=== PATIENT | female | born 1980 | race Caucasian/White ===

== ENCOUNTER 2024-06-05 15:49 | Outpatient (CLI) | payer BC, SELFPAY ==
[2024-06-05 17:45] LABS: MANUAL DIFFERENTIAL MANUAL DIFFERENTIAL (MANUAL DIFF)
[2024-06-05 17:54] LABS: Basophils # 0.1 K/mm3 (0-0.2); Basophils % 0.5 % (0.1-2.0); Eosinophils # 0.1 K/mm3 (0.0-0.4); Eosinophils % 1.5 % (0.1-12.0); Hematocrit 40.3 % (37.0-47.0); Hemoglobin 14.6 g/dL (12.2-16.2); Lymphocytes # 3.2 K/mm3 (0.7-4.5); Lymphocytes % 34.1 % (10-50); Mean Corpuscular HGB Conc 36.2 g/dL (31.8-35.4); Mean Corpuscular Hemoglobin 31.5 pg (27.0-31.2); Mean Corpuscular Volume 86.9 fl (81-99); Mean Platelet Volume 7.5 fl (7.4-10.4); Monocytes # 0.5 K/mm3 (0.1-1.0); Monocytes % 5.5 % (1.7-9.3); Neutrophils # 5.5 K/mm3 (1.8-7.8); Neutrophils % 58.5 % (37.0-80.0); Platelet Count 355 K/mm3 (142-424); Red Blood Count 4.63 M/mm3 (4.20-5.40); Red Cell Distribution Width 15.1 % (11.5-17.5); White Blood Count 9.4 K/mm3 (4.8-10.8)
[2024-06-05 18:31] LABS: Eosinophils % 1 % (0-3); Lymphocytes % 28 % (10-50); Monocytes % 2 % (2-9); Neutrophils % 69 % (42-76); Total Cells Counted 100
[2024-06-05 18:32] LABS: Alanine Aminotransferase 61 U/L (12-78); Albumin Level 4.6 g/dl (3.5-5.0); Albumin/Globulin Ratio 1.5 (1.1-1.8); Alkaline Phosphatase 31 U/L (38-126); Amylase 69 U/L (30-110); Anion Gap 7.6 mEq/L (5-15); Aspartate Amino Transferase 43 U/L (14-36); Bilirubin,Total 0.6 mg/dl (0.2-1.3); Blood Urea Nitrogen 13 mg/dl (7-17); Calcium 9.8 mg/dl (8.4-10.2); Carbon Dioxide 27 mmol/L (22.0-30.0); Chloride 107 mmol/L (98-107); Estimated Glomerular Filt Rate 109 ml/min (>60); GFR (African American) 131 ML/MIN (>60); Globulin 3.1 g/dL (1.3-3.2); Glucose 88 mg/dl (74-100); Lipase 111 U/L (23-300); Platelet Estimate Slight Increase; Potassium 4.6 mmoL/L (3.5-5.1); RBC Morphology Normal; Sodium 137 mmol/L (136-145); Total Protein,Serum 7.7 g/dl (6.3-8.2)
[2024-06-05 18:43] LABS: Hemoglobin A1C 5.2 % (4.0-6.0)
[2024-06-05 18:49] LABS: 25-OH Vitamin D, Total 21.8 ng/mL (30-100)
[2024-06-05 20:08] LABS: Thyroid Stimulating Hormone 2.06 uIU/mL (0.465-4.68)
== END 2024-06-05 23:59 | disposition home or self-care (01) ==
LOC: LAB.DROPOF 06-06 10:29
PROVIDERS: PCP Student in an Organized Health Care Education/Training Program; Visit Provider Student in an Organized Health Care Education/Training Program
DX: R19.7 Diarrhea, unspecified (principal); R10.9 Unspecified abdominal pain; Z80.0 Family history of malignant neoplasm of digestive organs; Z86.0100 Personal history of colon polyps, unspecified; K58.0 Irritable bowel syndrome with diarrhea; F31.9 Bipolar disorder, unspecified; F90.8 Attention-deficit hyperactivity disorder, other type; Z71.6 Tobacco abuse counseling
CPT/HCPCS: 80053; 82150; 82306; 83036; 83690; 84443; 85007; 85014; 85018; 85048; 85049

== ENCOUNTER 2024-06-11 08:51 | Outpatient (CLI) | payer BC, SELFPAY ==
--- NOTE | 2024-06-11 08:51 | US_ITS ---
FINAL REPORT CLINICAL HISTORY: abd pain FINDINGS: Sonographic images of the abdomen were obtained. There is fatty infiltration of the liver. The gallbladder has an unremarkable appearance without evidence of gallstones. There is no evidence of biliary ductal dilatation. The common hepatic duct measures 6 mm. Limited images of the pancreas are unremarkable. The spleen size is normal. The right kidney measures 12.7 cm in length. The left kidney measures 11.6 cm in length. There is normal renal echogenicity. There is no evidence of hydronephrosis. The aorta has an unremarkable appearance. Limited images of the inferior vena cava are unremarkable. IMPRESSION: Fatty liver. Reviewed, Interpreted and Dictated by Chino Roberto MD Transcribed by Erika Adam Authenticated and . [facility]
== END 2024-06-11 23:59 | disposition home or self-care (01) ==
LOC: RAD 08:51
PROVIDERS: PCP Student in an Organized Health Care Education/Training Program; Visit Provider Student in an Organized Health Care Education/Training Program
DX: K76.0 Fatty (change of) liver, not elsewhere classified (principal); R10.9 Unspecified abdominal pain
CPT/HCPCS: 76700

== ENCOUNTER 2024-07-06 15:42 | Outpatient (CLI) | payer BC, SELFPAY ==
[2024-07-06 15:52] LABS: Adenovirus F 40/41, stool Not Detected (NotDetected); Astrovirus Not Detected (NotDetected); Campylobacter Not Detected (NotDetected); Clostridium Difficile A/B, PCR Not Detected (NotDetected); Cryptosporidium Not Detected (NotDetected); Cyclospora Cayetanesis Not Detected (NotDetected); Entamoeba histolytica Not Detected (NotDetected); Enteroaggregative E coli Not Detected (NotDetected); Enteropathogenic E coli Not Detected (NotDetected); Enterotoxigenic E coli Not Detected (NotDetected); Giardia lamblia Not Detected (NotDetected); Norovirus Not Detected (NotDetected); Plesimonas Shigalloides, PCR Not Detected (NotDetected); Rotavirus A Not Detected (NotDetected); Salmonella, PCR Not Detected (NotDetected); Sapovirus Not Detected (NotDetected); Shiga-like toxin E coli Not Detected (NotDetected); Shigella Enterovasive E coli Not Detected (NotDetected); Vibrio Cholerae Not Detected (NotDetected); Vibrio, PCR Not Detected (NotDetected); Yersinia Entercolitica, PCR Not Detected (NotDetected)
[2024-07-09 07:18] LABS: Calprotectin, Fecal 10 ug/g (0-120)
[2024-07-09 22:19] LABS: Pancreatic Elastase, Fecal 481 (>200)
== END 2024-07-06 23:59 | disposition home or self-care (01) ==
LOC: LAB 15:42
PROVIDERS: PCP Student in an Organized Health Care Education/Training Program; Visit Provider Nurse Practitioner Family
DX: R19.4 Change in bowel habit (principal); R19.7 Diarrhea, unspecified; R15.2 Fecal urgency; K62.5 Hemorrhage of anus and rectum; K58.2 Mixed irritable bowel syndrome; R14.0 Abdominal distension (gaseous)
CPT/HCPCS: 82656; 83993; 87506

== ENCOUNTER 2024-08-05 18:49 | Emergency (ER) | payer BC, SELFPAY ==
[2024-08-05 19:10] VITALS: BP 122/68; PULSE 87; RESP 19; TEMP 36.8; O2SAT 98; BMI 27.2
[2024-08-05 19:15] LABS: Coronavirus 19, PCR Not Detected (NotDetected); Influenza A, PCR Not Detected (NotDetected); Influenza B, PCR Not Detected (NotDetected)
--- NOTE | 2024-08-05 19:31 | EXP.UTC ---
Discharge Plan Disposition Patient Disposition: Home, Self-Care Condition: Good Prescriptions Prescriptions: No Action dextroamphetamine-amphetamine 20 mg tablet 20 mg PO BID Patient Comments: TAKE ONE TABLET BY MOUTH TWICE DAILY TAKE AT LEAST 4-6 HOURS APART aripiprazole 5 mg tablet 5 mg PO DAILY Patient Comments: TAKE ONE TABLET BY MOUTH EVERY DAY bupropion HCl 300 mg tablet extended release 24 hr 300 mg PO DAILY Patient Comments: TAKE ONE TABLET BY MOUTH EVERY DAY cholecalciferol (vitamin D3) 50 mcg (2,000 unit) capsule 50 mcg PO DAILY Patient Comments: TAKE ONE CAPSULE BY MOUTH EVERY DAY Referrals Follow up/Referrals: Floresita Garcia PA [Primary Care Provider] - See instructions Activity Restrictions/Add. Instructions Additional Instructions/Restrictions: *Monitor Temp, Over the counter Motrin or Tylenol as directed/as needed Tylenol every 4 hours and Motrin every 6 hours (as long as your family doctor has told you that you can take it) for fever or pain. and straight to ER if unable to lower temp less than 101.0 after medication given *Warm salt water gargles may help to soothe the throat *Throat Lozenges? *Warm fluids like tea with honey may help to soothe the throat? *Sleep elevated *Humidifier/Vaporizer Follow up IMMEDIATELY for new or worsening symptoms or no Noticeable improvement over the next 48-72 hours. 911 for difficulty breathing or swallowing You was tested for COVID and Flu these results should be back later tonight and be available on the [facility] Portal Clinical Impressions Clinical Impression: Viral syndrome Instructions Patient Instructions: DI for Viral Syndrome Print Language Print Language: Faroese Discharge ED Provider: Isabel Oates [facility] [place] General Stated complaint: fever Mode of Arrival: Ambulatory Source of Information: Patient Limitations: No Limitations Time Seen by Provider: 08/05/24 19:31 Description of Symptoms (Recalled from Triage Doc. by RN): PATIENT C/O BODY ACHES, CHILLS, AND FEVER THAT STARTED THIS EVENING HEENT Symptoms (Recalled from RN notes): No Resp Symptoms (Recalled from RN notes): No Skin Symptoms (Recalled from RN notes): No MS Symptoms (Recalled from RN notes): No Functional Status (Recalled from RN notes): WNL History of Present Illness Provider Complaint: Patient states that she came in to work this evening and then started with fever, chills, body aches and not feeling well States wanting to get tested for COVID and flu Related Data Home Medications ?Medication ?Instructions ?Recorded ?Confirmed aripiprazole 5 mg tablet 5 mg PO DAILY 08/05/24 08/05/24 bupropion HCl 300 mg 24 hr tablet, 300 mg PO DAILY 08/05/24 08/05/24 extended release cholecalciferol (vitamin D3) 50 50 mcg PO DAILY 08/05/24 08/05/24 mcg (2,000 unit) capsule dextroamphetamine-amphetamine 20 20 mg PO BID 08/05/24 08/05/24 mg tablet Allergies Allergy/AdvReac Type Severity Reaction Status Date / Time No Known Allergies Allergy Unverified 07/06/24 13:40 Worker's Comp Is this a Worker's Comp case?: No [facility] Disclaimer: The information contained in this section may have been updated after the patient was seen, as this information can be updated by other users. Medical History ADHD Bipolar 1 disorder Surgical History H/O colonoscopy with polypectomy S/P appendectomy Family History Sister Cancer, Onset Age: 45 colon cancer Social History Smoking Status: Current every day smoker tobacco type: e-cigarettes alcohol intake: current alcohol intake frequency: holidays/special occasions only current occupational status: employed Travel in the last 8 weeks: [place] the [place] household members: children housing: apartment lives independently: Yes marital status: number of children: 3 ROS Obtained: Yes All systems reviewed & no additional complaints except as documented and Yes Systems reviewed as appropriate & no additional complaints except as documented Constitutional Constitutional: Reports system reviewed and no additional complaints, except as documented, Reports as per HPI, Reports body ache, Reports chills, Reports fever(s) and Reports headache(s) Eyes Eyes: Reports system reviewed and no additional complaints, except as documented and Reports as per HPI ENT Ears, Nose, Mouth, and Throat: Reports system reviewed and no additional complaints, except as documented, Reports as per HPI, Reports headache(s), Reports nasal congestion and Reports nasal discharge Cardiovascular Cardiovascular: Reports system reviewed and no additional complaints, except as documented and Reports as per HPI Respiratory Respiratory: Reports system reviewed and no additional complaints, except as documented and Reports as per HPI Gastrointestinal Gastrointestingal: Reports system reviewed and no additional complaints, except as documented and as per HPI Neurologic Neurologic: Reports headache(s) Physical Exam General General appearance: alert and in no apparent distress ENT ENT exam: Present normal exam, normal oropharynx, mucous membranes moist and TM's normal bilaterally Respiratory Respiratory exam: Present normal lung sounds bilaterally; Absent respiratory distress or wheezes Cardiovascular Cardiovascular exam: Present regular rate, normal rhythm and normal heart sounds Abdominal Exam Abdominal exam: Present soft and normal bowel sounds; Absent distention or tenderness Neurological Exam Neurological exam: Present alert, oriented X3 and normal gait Medical Decision Making Medical Records Screening: Per USPSTF and CDC recommendations, given the prevalence of disease in our region, it is our hospital?s policy to screen for HIV and viral Hepatitis for all patients aged 18 and over and those with ongoing risk factors. Mukund Inquiry Pt receiving controlled substance: No Mukund was queried for this patient: No Vital Signs: 08/05/24 19:10 Temperature 98.3 F Temperature Source Oral Pulse Rate [Left Brachial] 87 Respiratory Rate 19 Blood Pressure [Left Arm] 122/68 Blood Pressure Mean [Left Arm] 86 Blood Pressure Source [Left Arm] Automatic Cuff Blood Pressure Position [Left Arm] Sitting 02 Sat by Pulse Oximetry 98 Oxygen Delivery Method Room Air Orders (Tests/Meds): ORDERS Category Date Time Status Rapid PCR Covid and Flu A/B Stat Lab 08/05/24 19:04 Received
[2024-08-05 19:40] VITALS: BP 122/68; PULSE 87; RESP 19; TEMP 36.8; O2SAT 98
== END 2024-08-05 19:42 | disposition home or self-care (01) ==
PROVIDERS: Emergency Provider Nurse Practitioner; PCP Student in an Organized Health Care Education/Training Program
DX: B34.9 Viral infection, unspecified (principal); R50.9 Fever, unspecified; M79.10 Myalgia, unspecified site
CPT/HCPCS: 87636; 99212; G0381

== ENCOUNTER 2024-09-04 13:04 | Emergency (ER) | payer BC, SELFPAY ==
--- NOTE | 2024-09-04 13:11 | XR_ITS ---
FINAL REPORT CLINICAL HISTORY: Pain COMPARISON: None FINDINGS: LEFT KNEE Three views demonstrate no acute fracture or dislocation. The joint spaces appear normal. No acute soft tissue abnormality is seen. IMPRESSION: No acute bony abnormality. Reviewed, Interpreted and Dictated by Chino Roberto MD Transcribed by Karen Bello Authenticated and [facility]
[2024-09-04 13:25] VITALS: BP 110/69; PULSE 69; RESP 20; TEMP 36.6; O2SAT 99; BMI 26.8
--- NOTE | 2024-09-04 13:26 | ED_ITS ---
Discharge Plan Disposition Patient Disposition: Home, Self-Care Condition: Good Prescriptions Prescriptions: New ibuprofen [IBU] 800 mg tablet 800 mg PO Q8HP PRN (Reason: Moderate Pain) Qty: 30 0RF No Action lamotrigine [Lamictal] 25 mg tablet 25 mg PO DAILY Qty: 98 0RF Rx Instructions: Take three tablets daily for two weeks, then four tablets daily for 2 weeks. If you develop a rash, stop the medication and call the clinic. prednisone 20 mg tablet 20 mg PO BID Qty: 10 0RF azithromycin [Zithromax Z-Dae] 250 mg tablet See Rx Instructions PO .COMPLEX Qty: 6 0RF Rx Instructions: For 250 mg dose pack: take 500 mg today (day 1), then 250 mg for 4 days (days 2-5) PO benzonatate 100 mg capsule 100 mg PO BID PRN (Reason: cough) Qty: 20 0RF varenicline tartrate 0.5 mg (11)- 1 mg (42) tablets,dose pack See Rx Instructions PO PER PKG DIR Qty: 53 0RF Rx Instructions: PO PER PKG DIR aripiprazole 5 mg tablet 5 mg PO DAILY Qty: 30 2RF bupropion HCl 300 mg tablet extended release 24 hr 300 mg PO DAILY Qty: 30 2RF dextroamphetamine-amphetamine 20 mg tablet 20 mg PO BID Qty: 60 0RF cholecalciferol (vitamin D3) 50 mcg (2,000 unit) capsule 50 mcg PO DAILY Patient Comments: TAKE ONE CAPSULE BY MOUTH EVERY DAY Referrals Follow up/Referrals: Floresita Garcia PA [Primary Care Provider] - See instructions Judson Bolanos DO [Staff Physician] - See instructions Activity Restrictions/Add. Instructions Additional Instructions/Restrictions: Rest the extremity, apply ice for 15 minutes as tolerated three or four times per day, Elevate the extremity as tolerated while you are resting. Use the crutches and knee immobilizer to rest your knee and your leg for the next few days. If your symptoms continue, make sure you follow up for further evaluation. Take ibuprofen for pain. I sent in a prescription to your pharmacy. Follow up with Dr. Bolanos (orthopedics). I put in a referral but you need to call his office and schedule an appointment. Follow up with your regular doctor. GO TO THE ER FOR ANY WORSENING SYMPTOMS Clinical Impressions Clinical Impression: Left knee sprain, Left knee pain, Fall Instructions Patient Instructions: How to Use Crutches, DI for Knee Sprain, How to Use a Knee Immobilizer Print Language Print Language: Luxembourgish Discharge ED Provider: Brandt Mckinnon [facility] [place] HPI General Stated complaint: ao 09/04/24 fall left knee Time Seen by Provider: 09/04/24 13:26 History of Present Illness Provider Complaint: She states that earlier today she fell and came down on her left knee. She has had left knee pain and swelling since then. She denies any other injury or complaints at this time. Related Data Home Medications ?Medication ?Instructions ?Recorded ?Confirmed cholecalciferol (vitamin D3) 50 50 mcg PO DAILY 08/05/24 08/10/24 mcg (2,000 unit) capsule Previous Rx's ?Medication ?Instructions ?Recorded azithromycin 250 mg tablet See Rx Instructions PO .COMPLEX #6 08/10/24 (Zithromax Z-Dae) tabs benzonatate 100 mg capsule 100 mg PO BID PRN cough #20 caps 08/10/24 lamotrigine 25 mg tablet (Lamictal) 25 mg PO DAILY #98 tabs 08/10/24 prednisone 20 mg tablet 20 mg PO BID #10 tabs 08/10/24 varenicline tartrate 0.5 mg (11)-1 See Rx Instructions PO PER PKG DIR 08/10/24 mg (42) tablets in a dose pack #53 tabs aripiprazole 5 mg tablet 5 mg PO DAILY #30 tabs 08/20/24 bupropion HCl 300 mg 24 hr tablet, 300 mg PO DAILY #30 tabs 08/20/24 extended release dextroamphetamine-amphetamine 20 20 mg PO BID #60 tabs 08/20/24 mg tablet ibuprofen 800 mg tablet (IBU) 800 mg PO Q8HP PRN Moderate Pain 09/04/24 #30 tabs Allergies Allergy/AdvReac Type Severity Reaction Status Date / Time No Known Allergies Allergy Verified 08/10/24 09:53 [facility] Disclaimer: The information contained in this section may have been updated after the patient was seen, as this information can be updated by other users. Medical History ADHD Bipolar 1 disorder Surgical History H/O colonoscopy with polypectomy S/P appendectomy Family History Sister Cancer, Onset Age: 45 colon cancer Social History Smoking Status: Current every day smoker tobacco type: e-cigarettes alcohol intake: current alcohol intake frequency: holidays/special occasions only current occupational status: employed Travel in the last 8 weeks: [place] the [place] household members: children housing: apartment lives independently: Yes marital status: number of children: 3 Have you lived/traveled outside US in past 30 days?: No Contact w/someone who lives/traveled outside US past 30 days?: No Exposure to someone with infectious disease in past 14 days?: No Do you have a fever (greater than 100.4 F or 38 C)?: No Have you tested positive for COVID-19: No Exposed to someone with COVID-19 in past 14 days?: No Do you have a sore throat?: No Do you have a cough?: No Do you have any weakness?: No Do you have any diarrhea?: No Are you experiencing any unusual bleeding?: No Do you have any muscle aches/pain?: No Do you have any abdominal pain?: No Are you experiencing loss of taste or smell?: No ROS Obtained: Yes All systems reviewed & no additional complaints except as documented Constitutional Constitutional: Denies chills and Denies fever(s) Eyes Eyes: Denies eye discharge ENT Ears, Nose, Mouth, and Throat: Denies dizziness, Denies otalgia, Denies neck pain and Denies sore throat Cardiovascular Cardiovascular: Denies chest pain Respiratory Respiratory: Denies shortness of breath, Denies chest congestion, Denies cough, Denies stridor and Denies wheezing Gastrointestinal Gastrointestingal: Denies nausea or vomiting Musculoskeletal Musculoskeletal: Denies back pain and Denies neck pain Integumentary/Breasts Skin/Breast: Denies redness, Denies rash and Denies wounds Neurologic Neurologic: Denies dizziness, Denies paresthesias and Denies radicular pain Allergic/Immunologic Allergic/Immunologic: Denies wheezing Physical Exam General General appearance: alert and in no apparent distress Head Head exam: atraumatic, normocephalic and normal inspection Eye Eye exam: Present normal appearance, PERRL and EOMI ENT ENT exam: Present normal exam, normal oropharynx, mucous membranes moist, TM's normal bilaterally and normal external ear exam Neck Neck exam: Present normal inspection, full ROM and trachea midline; Absent meningismus or lymphadenopathy Chest Chest inspection: Present normal inspection and symmetric chest wall rise; Absent tenderness Respiratory Respiratory exam: Present normal lung sounds bilaterally; Absent respiratory distress Cardiovascular Cardiovascular exam: Present regular rate and normal rhythm; Absent JVD Abdominal Exam Abdominal exam: Present soft and normal bowel sounds; Absent distention, tenderness or guarding Extremities Exam Extremities exam: Present normal capillary refill; Absent calf tenderness Expanded Lower Extremity Exam Left: Hip/Pelvis exam: Present normal inspection and full ROM; Absent tenderness Upper leg exam: Present normal inspection and full ROM; Absent tenderness Knee exam: Present tenderness, swelling and knee extension intact; Absent full ROM, abrasion, laceration, ecchymosis, deformity, crepitus, dislocation, erythema, effusion, anterior drawer sign, posterior draw sign, pain with valgus, laxity with valgus, pain with varus or laxity with varus Lower leg exam: Present normal inspection, full ROM and Achilles tendon intact; Absent tenderness or Homans' sign Ankle exam: Present normal inspection and full ROM; Absent tenderness, tenderness over talofibular lig or anterior draw sign Foot/toe exam: Present normal inspection and full ROM; Absent tenderness Neurovascular/Tendon exam: Present normal capillary refill, normal 2-point discrimination and normal fine/light touch; Absent pulse deficit, motor deficit, sensory deficit, tendon deficit, extremity cold to touch or pallor Gait: observed and limited by pain Back Exam Back exam: Present normal inspection; Absent tenderness Neurological Exam Neurological exam: Present alert and oriented X3 Psychiatric Psychiatric exam: Present normal affect and normal mood Skin Skin exam: Present warm, dry, intact and normal color Lymphatic Lymphatic Findings: no adenopathy Medical Decision Making Medical Records Medical records reviewed: No I reviewed the patient's medical records. Screening: Per USPSTF and CDC recommendations, given the prevalence of disease in our region, it is our hospital?s policy to screen for HIV and viral Hepatitis for all patients aged 18 and over and those with ongoing risk factors. Mukund Inquiry Pt receiving controlled substance: No Orders (Tests/Meds): ORDERS Category Date Time Status Knee XR left 3 views [XR knee LT 3V] Stat Exams 09/04/24 13:11 Taken Radiology Data #1: Image(s): Knee Image Reviewed: Yes I reviewed the patient's radiology image and Yes I have reviewed radiologist's interpretation Preliminary Findings: No Fracture Seen Accession No. 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 The joint spaces appear normal. No acute soft tissue abnormality is seen. IMPRESSION: No acute bony abnormality. Reviewed, Interpreted and Dictated by Keira Roberto MD Transcribed by Karen Bello Authenticated and [facility] Procedures Risk/Benefits of Procedure(s) Were Explained: Yes Orthopedic Splinting/Casting Injury #1: Side: left Lower Extremity Injury Location: knee Lower Extremity Immobilizer: knee immobilizer and applied by nurse/dr murillo Other Orthopedic Equipment: crutches Post Cast/Splinting Neuro Status: intact and no change Post Cast/Splinting Vasc Status: intact and no change
[2024-09-04 14:25] VITALS: BP 110/69; PULSE 69; RESP 20; TEMP 36.6; O2SAT 99
== END 2024-09-04 14:28 | disposition home or self-care (01) ==
PROVIDERS: Emergency Provider Nurse Practitioner Family; PCP Student in an Organized Health Care Education/Training Program
DX: M25.562 Pain in left knee (principal); S83.92XA Sprain of unspecified site of left knee, initial encounter; W19.XXXA Unspecified fall, initial encounter
CPT/HCPCS: 73562; 99213; G0381

== ENCOUNTER 2024-09-08 14:38 | Outpatient (RCR) | payer BC, SELFPAY | END 2024-09-08 15:12 | disposition home or self-care (01) | LOC: PT 14:38 | PROVIDERS: Visit Provider Physician Assistant Surgical | DX: M25.562 Pain in left knee (principal) | CPT/HCPCS: 97760 ==

== ENCOUNTER 2024-09-21 08:07 | Day surgery (SDC) | payer BC, SELFPAY ==
[2024-09-15 12:30] VITALS: BMI 26.8
[2024-09-21 08:25] VITALS: BP 120/80; PULSE 73; RESP 18; TEMP 36.2; O2SAT 97
[2024-09-21 08:35] LABS: Urine Pregnancy, HCG Qual. Negative (Negative)
--- NOTE | 2024-09-21 08:52 | EXP.ANES.CKL ---
[facility] Disclaimer: The information contained in this section may have been updated after the patient was seen, as this information can be updated by other users. Medical History ADHD Bipolar 1 disorder Surgical History H/O colonoscopy with polypectomy S/P appendectomy Family History Sister Cancer, Onset Age: 45 colon cancer Social History Smoking Status: Current every day smoker tobacco type: e-cigarettes alcohol intake: current alcohol intake frequency: holidays/special occasions only current occupational status: employed Travel in the last 8 weeks: None household members: children housing: apartment lives independently: Yes marital status: number of children: 3 Have you lived/traveled outside US in past 30 days?: No Contact w/someone who lives/traveled outside US past 30 days?: No Exposure to someone with infectious disease in past 14 days?: No Do you have a fever (greater than 100.4 F or 38 C)?: No Have you tested positive for COVID-19: No Exposed to someone with COVID-19 in past 14 days?: No Do you have a sore throat?: No Do you have a cough?: No Do you have any weakness?: No Do you have any diarrhea?: No Are you experiencing any unusual bleeding?: No Do you have any muscle aches/pain?: No Do you have any abdominal pain?: No Are you experiencing loss of taste or smell?: No [facility] Anesthesia Checklist Patient Identification Patient Identification: Verbal (Name & ) Structural Data Admitted From: Home
--- NOTE | 2024-09-21 08:53 | EXP.ANES.CKL ---
[facility] Disclaimer: The information contained in this section may have been updated after the patient was seen, as this information can be updated by other users. Medical History ADHD Bipolar 1 disorder Surgical History H/O colonoscopy with polypectomy S/P appendectomy Family History Sister Cancer, Onset Age: 45 colon cancer Social History Smoking Status: Current every day smoker tobacco type: e-cigarettes alcohol intake: current alcohol intake frequency: holidays/special occasions only substance use type: denies use current occupational status: employed Travel in the last 8 weeks: None household members: children housing: apartment lives independently: Yes marital status: number of children: 3 [facility] Anesthesia Checklist Patient Identification Patient Identification: Verbal (Name & ) Structural Data Admitted From: Home Planned Operative Procedure/s: colonoscopy Consent for Planned Operative Procedure(s) Verified: Yes NPO Status Verified Time NPO: 00:00 Airway Assessment Mallampati Score:: Class II C-Spine Mobility Assessed: Yes TMJ Mobility Assessed: Yes Dentition: Dentures-good fit Neurological Assessment Level of Consciousness: Awake, Alert and Appropriate Anesthesia Plan Anesthesia Risk discussed: Yes Anesthesia Plan: Verified ASA Class: II Anesthesia Type: MAC
--- NOTE | 2024-09-21 09:59 | EXP.HP ---
History of Present Illness *Admission Date: 09/21/24 *Reason for visit:: Change in bowel habits, diarrhea and rectal bleeding presumably hemorrhoids *History of present illness: Mrs. Carrillo is a 44-year-old female with mixed IBS, bowel urgency, diarrhea and intermittent rectal bleeding?presumably internal hemorrhoids who is here for diagnostic colonoscopy. The examination is deemed medically necessary for diagnostic colonoscopy. The patient has been seen, interviewed and examined prior to the procedure by both myself and the anesthesia provider. [facility] Disclaimer: The information contained in this section may have been updated after the patient was seen, as this information can be updated by other users. Medical History ADHD Bipolar 1 disorder Surgical History H/O colonoscopy with polypectomy S/P appendectomy Family History Sister Cancer, Onset Age: 45 colon cancer Social History (Updated 09/21/24 @ 08:54 by Waqas Whitney CRNA) Smoking Status: Current every day smoker tobacco type: e-cigarettes alcohol intake: current alcohol intake frequency: holidays/special occasions only substance use type: denies use current occupational status: employed Travel in the last 8 weeks: None household members: children housing: apartment lives independently: Yes marital status: number of children: 3 Have you lived/traveled outside [place] in past 30 days?: No Contact w/someone who lives/traveled outside [place] past 30 days?: No Exposure to someone with infectious disease in past 14 days?: No Do you have a fever (greater than 100.4 F or 38 C)?: No Have you tested positive for COVID-19: No Exposed to someone with COVID-19 in past 14 days?: No Do you have a sore throat?: No Do you have a cough?: No Do you have any weakness?: No Do you have any diarrhea?: No Are you experiencing any unusual bleeding?: No Do you have any muscle aches/pain?: No Do you have any abdominal pain?: No Are you experiencing loss of taste or smell?: No Other Medical History Have you received the Pneumonia Vaccine: No Review of Systems Review of Systems Review of systems (narrative): Negative *Cardiovascular Comments: Negative *Gastrointestinal Comments: Negative *Genitourinary Comments: Negative *Musculoskeletal Comments: Negative *Neurologic Comments: Negative Meds Home Medications and Allergies Home Medications ?Medication ?Instructions ?Recorded ?Confirmed ?Type cholecalciferol (vitamin D3) 50 50 mcg PO DAILY 08/05/24 09/15/24 History mcg (2,000 unit) capsule lamotrigine 25 mg tablet (Lamictal) 25 mg PO DAILY #98 tabs 08/10/24 09/15/24 Rx varenicline tartrate 0.5 mg (11)-1 See Rx Instructions PO PER PKG DIR 08/10/24 09/15/24 Rx mg (42) tablets in a dose pack #53 tabs ibuprofen 800 mg tablet (IBU) 800 mg PO Q8HP PRN Moderate Pain 09/04/24 09/15/24 Rx #30 tabs ibuprofen 800 mg tablet (IBU) 800 mg PO Q8H 09/07/24 09/15/24 History sodium,potassium,mag sulfates 17.5 See Rx Instructions PO .COMPLEX 09/10/24 Rx gram-3.13 gram-1.6 gram oral soln #354 mL (Suprep Bowel Prep Kit) aripiprazole 5 mg tablet (Abilify) 5 mg PO DAILY 09/15/24 09/15/24 History bupropion HCl 300 mg 24 hr tablet, 300 mg PO DAILY 09/15/24 09/15/24 History extended release (Wellbutrin XL) dextroamphetamine-amphetamine 20 20 mg PO BID 09/15/24 09/15/24 History mg tablet (Adderall) New Prescriptions to Start Prescriptions: Allergies Allergy/AdvReac Type Severity Reaction Status Date / Time No Known Allergies Allergy Verified 09/15/24 12:27 Exam Data for Last 24 hours Vital signs and Labs for Last 24 Hours: Temp Pulse Resp BP Pulse Ox O2 Del Method 97.1 F L 73 18 120/80 97 Room Air 09/21/24 08:25 09/21/24 08:25 09/21/24 08:25 09/21/24 08:25 09/21/24 08:25 09/21/24 08:25 Laboratory Results - last 24 hr 09/21/24 08:15: Urine HCG, Qual Negative *Routine HEENT Exam Head: Present normocephalic Eye: Present EOMI and PERRL ENT: Present mucous membranes moist *Routine Neck Exam Neck: Present supple *Routine Respiratory Exam Respiratory: Present CTA bilaterally *Routine Cardiovascular Exam Cardiovascular: Present RRR *Routine Abdominal Exam Abdominal: Present soft and normoactive bowel sounds; Absent tenderness *Routine Rectal Exam Rectal:: deferred *Routine Genitalia Exam Genitalia:: deferred *Routine Extremities Exam Extremities: Absent cyanosis, clubbing or edema *Routine Skin Exam Skin: Present warm; Absent rash *Routine Neurological Exam Neurological: Present alert and oriented X3 Assessment and Plan *Assessment and plan (1) Rectal bleeding: Status: Acute Category: Medical Code(s): K62.5 - Hemorrhage of anus and rectum (2) Diarrhea: Status: Acute Category: Medical Code(s): R19.7 - Diarrhea, unspecified (3) Change in bowel habits: Status: Acute Category: Medical Code(s): R19.4 - Change in bowel habit (4) Fecal urgency: Status: Acute Category: Medical Code(s): R15.2 - Fecal urgency (5) Bloating: Status: Acute Category: Medical Code(s): R14.0 - Abdominal distension (gaseous) (6) History of colon polyps: Status: Acute Category: Medical Code(s): Z86.0100 - Personal history of colon polyps, unspecified Plan A/P: 1. Change in bowel habits with diarrhea, urgency, bloating and some rectal bleeding is the preprocedural diagnosis. The patient also has a prior history of colon polyps the patient will be anesthetized/sedated using MAC sedation. The patient has been seen and examined. Cardiac and lung assessment prior to the examination is stable. Proceed with planned diagnostic colonoscopy
[2024-09-21 10:03] VITALS: O2SAT 97
--- NOTE | 2024-09-21 10:09 | HMH.PROCNOTE ---
[facility] Procedure Note Date: 09/21/24 Time: 10:39 Procedure Note:: Colonoscopy Procedure Report: Colonoscopy with cold snare polypectomy, soft and forced coagulation (of internal hemorrhoids), cold biopsies and Endo Clip placement Endoscopist: Yossi Bowers II, MD Referring physician: Floresita Garcia PA-C Date of Procedure: September 21, 2024 Equipment: Olympus 190 variable stiffness pediatric colonoscope Sedation: MAC sedation Indication: Mrs. Carrillo is a 44-year-old female who is here for diagnostic colonoscopy. She has had a change in her bowel habits. She formerly had IBS with mixed constipation alternating with diarrhea. Now, for the last several months she has had no formed bowel movements and has diarrhea with urgency. She also has rectal bleeding and rectal pain and has known internal and external hemorrhoids. She is used multiple [id number] treatments including Preparation H. She does take dicyclomine 4 times daily but continues to have symptoms. She will have up to 10-15 watery bowel movements daily. She has had an increase in bloating and crampy abdominal discomfort. She does state that her sister had colon cancer at the age of 45. The patient's last colonoscopy was 10 years ago and she had 6 or 7 polyps removed at that time. Procedure: Prior to the procedure, a history and physical exam was performed, and patient's medications and allergies were reviewed. The risks, benefits and alternatives of the sedation and procedure were discussed with the patient. All questions were answered and informed consent was obtained. The patient was brought to the procedure room. Patient identification and proposed procedure were verified by the physician and the nurse. The patient was placed in a left lateral decubitus position and the scope was passed under direct vision. Throughout the procedure, the patient's blood pressure, pulse, and oxygen saturations were monitored continuously. The colonoscopy was accomplished without difficulty. The patient tolerated the procedure well. Findings: On digital rectal examination there was normal rectal tone. There were small external hemorrhoidal tags. There was a posterior midline chronic anal fissure. The colonoscope was introduced through the anal canal to the rectum and advanced to the cecum. The ileocecal valve and appendiceal orifice were identified. The scope was advanced a short distance into the ileum which appeared grossly normal. The scope was then withdrawn into the colon. There were 5 colon polyps (ascending x 1 (19 to 20 mm), transverse x 1 (9 mm), descending x 2 (4 and 6 mm) and sigmoid x 1 (5 mm)). The ascending colon polyp was removed both en face and in the retroflexed position using cold snare polypectomy. Hot biopsy forceps was used for soft coagulation at the resected polypectomy site on a small visible vessel. A single Endo Clip was placed over the polypectomy site. The additional 4 polyps were removed via cold snare polypectomy. Random cold biopsies were taken from the right colon to rule out microscopic colitis. The remaining cecum, ascending, transverse, descending, sigmoid and rectum were grossly normal. There were no mucosal abnormalities identified. Upon retroflexion within the rectum there were grade 2 internal hemorrhoids.3 columns of hemorrhoids were ablated using force coagulation to destruction. The preparation was excellent throughout with Browder Preparation Score of 9. The cecal time was 18 minutes. Impression: 1. 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 4 additional colonic polyps status post cold snare removal 3. Grade 2 internal hemorrhoids status post ablation/coagulation Plan: I will follow-up the polyp histology and recommend repeat surveillance colonoscopy again in 1 year based upon the size and nature of the adenomatous colon polyps. I will also follow-up the biopsies to rule out microscopic colitis. I would encourage bulk fiber tablets (FiberCon 2 tablets p.o. every morning).
[2024-09-21 10:41] VITALS: BP 113/76; PULSE 63; RESP 17; TEMP 36.6; O2SAT 98
[2024-09-21 10:51] VITALS: BP 107/70; PULSE 80; RESP 17; O2SAT 100
[2024-09-21 11:01] VITALS: BP 115/81; PULSE 80; RESP 17; O2SAT 100
[2024-09-21 11:11] VITALS: BP 108/90; PULSE 64; RESP 17; O2SAT 100
[2024-09-21] MEDS: KETOROLAC 30MG/ML VIAL 15 MG IV (11:14)
== END 2024-09-21 11:38 | disposition home or self-care (01) ==
PROVIDERS: PCP Student in an Organized Health Care Education/Training Program; Visit Provider Internal Medicine Gastroenterology
PROC: (CPT 45380; principal; 2024-09-21 09:30)
DX: K62.5 Hemorrhage of anus and rectum (principal); R19.7 Diarrhea, unspecified; R19.4 Change in bowel habit; R15.2 Fecal urgency; R14.0 Abdominal distension (gaseous); Z86.0100 Personal history of colon polyps, unspecified; K60.1 Chronic anal fissure; K63.5 Polyp of colon; K64.1 Second degree hemorrhoids
CPT/HCPCS: 45380; 45382; 45385; 81025; J1885; J2704

== ENCOUNTER 2024-11-04 13:07 | Outpatient (CLI) | payer OTHER, SELFPAY ==
--- NOTE | 2024-11-04 13:09 | MR_ITS ---
FINAL REPORT CLINICAL HISTORY: Lt Knee pain. FELL Aug AND TWISTED KNEE. MEDIAL SIDED KNEE PAIN. FINDINGS: Multi planar MR imaging was performed of the right knee. The anterior and posterior cruciate ligaments are intact. The quadriceps and patellar tendons are intact. There is a questionable, mild amount of edema in the medial collateral ligament complex which may be due to strain. The medial and lateral collateral ligaments appear intact. The medial and lateral retinacula appear intact. There is no evidence of bone marrow edema or osteochondral defect. There is grade II chondromalacia at the undersurface of the medial articular facet of the patella seen on image 8 of series 3. No evidence of soft tissue inflammatory reaction. IMPRESSION: Questionable, mild MCL strain. Grade II chondromalacia patella. Reviewed, Interpreted and Dictated by Chino Roberto MD Transcribed by Alyssa Cohen Authenticated and [facility]
== END 2024-11-04 23:59 | disposition home or self-care (01) ==
LOC: RAD 13:09
PROVIDERS: PCP Physician Assistant Surgical; Visit Provider Physician Assistant Surgical
DX: M25.562 Pain in left knee (principal)
CPT/HCPCS: 73721